=== PATIENT | female | born 1975 | race Caucasian/White ===

== ENCOUNTER 2020-11-09 14:57 | Inpatient (IN) ==
[2020-11-09 15:36] LABS: Basophils % 0.2 % (0.0-0.8); Hematocrit 43.5 VOL% (35.7-47.0); Hemoglobin 14.7 GM/DL (12.0-16.0); Immature Granulocytes % 0.9 %; Immature Granulocytes Absolute 0.08 #; Lymphocytes # 1.6 10*3/uL (1.4-4.0); Lymphocytes % 16.6 % (21.3-54.2); Mean Corpuscular HGB Conc 33.8 GM/DL (32-36); Mean Corpuscular Volume 88.1 FL (87-102); Mean Platelet Volume 10.1 FL (9.6-12.0); Monocytes % 7.8 % (1.7-12.7); Neutrophils % 74.5 % (38.7-73.9); Platelet Count 189 T/CUMM (130-400); Red Blood Count 4.94 MC/CUMM (3.8-5.5); Red Cell Distribution Width 14.3 % (9.3-17.3); White Blood Count 9.4 T/CUMM (4-12)
[2020-11-09 16:03] LABS: ABG Base Excess 0.9 MMOL/L (-2.5-2.5); ABG HCO3 25.1 MMOL/L (20-26); ABG Oxygen Saturation 92.3 % (95-100); ABG PCO2 31.4 MM HG (35-48); ABG PH 7.481 (7.35-7.45); ABG PO2 58.7 MM HG (80-95)
[2020-11-09 16:03] LABS: Albumin 2.8 G/DL (3.4-5.0); Bilirubin,Total 1.1 MG/DL (0.20-1.00); Calcium 7.8 MG/DL (8.5-10.1); Ferritin 631.1 ng/mL (8-252); Osmolality,Calculated 270.1 MOS/KG (273-304); Potassium 3.7 MMOL/L (3.5-5.1); Total Protein 6.5 G/DL (6.4-8.2)
[2020-11-09] MEDS ORDERED: cefTRIAXone 2,000 MG in SODIUM CHLORIDE 0.9% 100 ML IV STA (16:24)
[2020-11-09] MEDS ORDERED: DEXAMETHASONE 4 MG/1 ML VIAL IV STA (16:25)
[2020-11-09] MEDS ORDERED: MELATONIN 3 MG TABLET PO PRN (16:35)
[2020-11-09] MEDS ORDERED: AZITHROMYCIN INJ 500 MG in SODIUM CHLORIDE 0.9% 250 ML IV ONE (16:35)
[2020-11-09] MEDS ORDERED: ONDANSETRON 4 MG/2 ML VIAL IV PRN (16:43)
[2020-11-09] MEDS ORDERED: GLUCAGON 1 MG VIAL IM PRN (16:43)
[2020-11-09] MEDS ORDERED: ACETAMINOPHEN 325 MG TABLET PO PRN (16:43)
[2020-11-09] MEDS ORDERED: DEXTROSE 50% 25 GM/50 ML VIAL IV PRN (16:43)
[2020-11-09] MEDS ORDERED: ENOXAPARIN 40 MG/0.4 ML SYRINGE ONE (17:25)
[2020-11-09] MEDS: ENOXAPARIN 30 MG/0.3 ML SYRINGE SUBCUT SCH (17:46)
[2020-11-09] MEDS ORDERED: MORPHINE 2 MG/1 ML SYRINGE IV PRN (19:57)
[2020-11-09] MEDS: FAMOTIDINE 20 MG TABLET PO SCH (21:02)
[2020-11-09] MEDS: ASCORBIC ACID 500 MG TABLET PO SCH (21:02)
[2020-11-10 04:45] LABS: Basophils % 0.2 % (0.0-0.8); Hematocrit 42.6 VOL% (35.7-47.0); Immature Granulocytes % 0.6 %; Immature Granulocytes Absolute 0.03 #; Lymphocytes # 0.9 10*3/uL (1.4-4.0); Lymphocytes % 18.7 % (21.3-54.2); Mean Corpuscular HGB Conc 32.9 GM/DL (32-36); Mean Corpuscular Volume 89.5 FL (87-102); Mean Platelet Volume 9.7 FL (9.6-12.0); Monocytes % 6.5 % (1.7-12.7); Platelet Count 192 T/CUMM (130-400); Red Blood Count 4.76 MC/CUMM (3.8-5.5); Red Cell Distribution Width 14.3 % (9.3-17.3); White Blood Count 4.9 T/CUMM (4-12)
[2020-11-10 05:11] LABS: Albumin 2.5 G/DL (3.4-5.0); Bilirubin,Total 0.7 MG/DL (0.20-1.00); Calcium 8.1 MG/DL (8.5-10.1); Osmolality,Calculated 275.8 MOS/KG (273-304); Potassium 4.6 MMOL/L (3.5-5.1); Total Protein 6.7 G/DL (6.4-8.2)
[2020-11-10] MEDS: DEXAMETHASONE 4 MG/1 ML VIAL IV SCH (08:14)
[2020-11-10] MEDS: BENZONATATE 100 MG CAPSULE PO PRN ×2 (08:15→16:33)
[2020-11-10] MEDS: ASCORBIC ACID 500 MG TABLET PO SCH ×2 (08:15→20:35)
[2020-11-10] MEDS: CETIRIZINE 10 MG TABLET PO SCH (08:15)
[2020-11-10] MEDS: ESTRADIOL 2 MG TABLET PO SCH (08:16)
[2020-11-10] MEDS: CHOLECALCIFEROL 1,000 UNIT TABLET PO SCH (08:16)
[2020-11-10] MEDS: FAMOTIDINE 20 MG TABLET PO SCH ×2 (08:16→20:35)
[2020-11-10] MEDS: AZITHROMYCIN 250 MG TABLET PO SCH (08:16)
[2020-11-10] MEDS: ZINC GLUCONATE 50 MG TABLET PO SCH (08:18)
[2020-11-10] MEDS ORDERED: REMDESIVIR 200 MG in SODIUM CHLORIDE 0.9% 210 ML IV ONE (09:00)
[2020-11-10] MEDS ORDERED: cefTRIAXone 1,000 MG in SODIUM CHLORIDE 0.9% 100 ML IV SCH (09:00)
[2020-11-10] MEDS: cefTRIAXone 1,000 MG in SODIUM CHLORIDE 0.9% 100 ML IV SCH (10:19)
[2020-11-10] MEDS: ENOXAPARIN 30 MG/0.3 ML SYRINGE SUBCUT SCH (16:33)
[2020-11-11 05:02] LABS: Basophils % 0.1 % (0.0-0.8); Hematocrit 41.9 VOL% (35.7-47.0); Hemoglobin 13.7 GM/DL (12.0-16.0); Immature Granulocytes % 1.2 %; Immature Granulocytes Absolute 0.14 #; Lymphocytes % 8.3 % (21.3-54.2); Mean Corpuscular HGB Conc 32.7 GM/DL (32-36); Mean Corpuscular Volume 89.7 FL (87-102); Mean Platelet Volume 10.1 FL (9.6-12.0); Monocytes % 6.6 % (1.7-12.7); Neutrophils % 83.8 % (38.7-73.9); Platelet Count 228 T/CUMM (130-400); Red Blood Count 4.67 MC/CUMM (3.8-5.5); Red Cell Distribution Width 14.4 % (9.3-17.3); White Blood Count 11.7 T/CUMM (4-12)
[2020-11-11 05:27] LABS: Calcium 8.2 MG/DL (8.5-10.1); Osmolality,Calculated 282.3 MOS/KG (273-304); Potassium 4.1 MMOL/L (3.5-5.1)
[2020-11-11 05:32] LABS: Ferritin 588.5 ng/mL (8-252)
[2020-11-11] MEDS: ESTRADIOL 2 MG TABLET PO SCH (09:05)
[2020-11-11] MEDS: ASCORBIC ACID 500 MG TABLET PO SCH ×2 (09:06→21:56)
[2020-11-11] MEDS: ZINC GLUCONATE 50 MG TABLET PO SCH (09:07)
[2020-11-11] MEDS: AZITHROMYCIN 250 MG TABLET PO SCH (09:07)
[2020-11-11] MEDS: CHOLECALCIFEROL 1,000 UNIT TABLET PO SCH (09:07)
[2020-11-11] MEDS: DEXAMETHASONE 4 MG/1 ML VIAL IV SCH (09:07)
[2020-11-11] MEDS: FAMOTIDINE 20 MG TABLET PO SCH ×2 (09:07→21:10)
[2020-11-11] MEDS: CETIRIZINE 10 MG TABLET PO SCH (09:07)
[2020-11-11] MEDS: REMDESIVIR 100 MG in SODIUM CHLORIDE 0.9% 100 ML IV SCH (10:21)
[2020-11-11] MEDS: cefTRIAXone 1,000 MG in SODIUM CHLORIDE 0.9% 100 ML IV SCH (12:26)
[2020-11-11] MEDS ORDERED: ENOXAPARIN 40 MG/0.4 ML SYRINGE SUBCUT SCH (21:00)
[2020-11-12 05:31] LABS: Basophils % 0.3 % (0.0-0.8); Eosinophils % 0.1 % (0.00-10.9); Hemoglobin 13.7 GM/DL (12.0-16.0); Immature Granulocytes % 0.9 %; Immature Granulocytes Absolute 0.12 #; Lymphocytes # 1.2 10*3/uL (1.4-4.0); Lymphocytes % 8.4 % (21.3-54.2); Mean Corpuscular HGB Conc 33.4 GM/DL (32-36); Mean Corpuscular Volume 89.7 FL (87-102); Mean Platelet Volume 10.3 FL (9.6-12.0); Monocytes % 7.5 % (1.7-12.7); Neutrophils % 82.8 % (38.7-73.9); Platelet Count 276 T/CUMM (130-400); Red Blood Count 4.57 MC/CUMM (3.8-5.5); Red Cell Distribution Width 14.4 % (9.3-17.3)
[2020-11-12 05:54] LABS: Calcium 8.2 MG/DL (8.5-10.1); Osmolality,Calculated 284.3 MOS/KG (273-304); Potassium 3.8 MMOL/L (3.5-5.1)
[2020-11-12 05:59] LABS: Ferritin 410.9 ng/mL (8-252)
[2020-11-12 08:07] VITALS: BP 122/79
[2020-11-12] MEDS: CHOLECALCIFEROL 1,000 UNIT TABLET PO SCH (09:27)
[2020-11-12] MEDS: FAMOTIDINE 20 MG TABLET PO SCH (09:27)
[2020-11-12] MEDS: ZINC GLUCONATE 50 MG TABLET PO SCH (09:27)
[2020-11-12] MEDS: ASCORBIC ACID 500 MG TABLET PO SCH (09:28)
[2020-11-12] MEDS: ESTRADIOL 2 MG TABLET PO SCH (09:28)
[2020-11-12] MEDS: AZITHROMYCIN 250 MG TABLET PO SCH (09:28)
[2020-11-12] MEDS: DEXAMETHASONE 4 MG/1 ML VIAL IV SCH (09:29)
[2020-11-12] MEDS: REMDESIVIR 100 MG in SODIUM CHLORIDE 0.9% 100 ML IV SCH (09:29)
[2020-11-12] MEDS: cefTRIAXone 1,000 MG in SODIUM CHLORIDE 0.9% 100 ML IV SCH (10:31)
[2020-11-12] MEDS: CETIRIZINE 10 MG TABLET PO SCH (10:32)
== END 2020-11-12 11:40 | disposition home or self-care (01) | DRG 177 ==
LOC: N.ED 14:57 → N.EDINP 16:43 → N.2E 18:55
PROVIDERS: ADMIT Internal Medicine; ATTEND Internal Medicine